=== PATIENT | female | born 1955 | race Caucasian/White ===

== ENCOUNTER → 2024-06-17 06:33 | Outpatient (REF) | payer MEDICARE, OTHER, SELFPAY | LOC: RAD 06:33 | PROVIDERS: ATTENDING PHYSICIAN Family Medicine | DX: Z13.6 Encounter for screening for cardiovascular disorders (principal); M85.89 Other specified disorders of bone density and structure, multiple sites; I67.9 Cerebrovascular disease, unspecified | CPT/HCPCS: 76770; 77080; 93880 ==